=== PATIENT | male | born 1960 | race Caucasian/White ===

== ENCOUNTER 2018-01-07 06:44 | Inpatient (IN) ==
[2018-01-07] MEDS ORDERED: Lidocaine -MPF 1% 2 ML VIAL ID ONE (06:57)
[2018-01-07] MEDS ORDERED: CeFAZolin Syr 2,000MG/20 ML 2,000 MG/20 ML SYRINGE IVPB ONE (06:57)
--- NOTE | 2018-01-07 06:57 | Discharge Summary ---
<Yuli Sinclair E - Last Filed: 01/07/18 09:27> Orders not resulted at time of discharge: Pending orders 01/07/18 01:00 XR knee LT limited 1-2V [XR] Routine XR knee RT limited 1-2V [XR] Routine Hemoglobin and Hematocrit [HEME] Routine Date of Encounter: 01/07/18 - Discharge Diagnosis (1) Arthritis of both knees Priority: Primary Status: Chronic (2) Status post total bilateral knee replacement Priority: Primary Status: Acute (3) GERD (gastroesophageal reflux disease) Priority: Secondary Status: Chronic Qualifiers: Esophagitis presence: esophagitis presence not specified Qualified Code(s) : K21.9 - Gastro-esophageal reflux disease without esophagitis (4) Gout Priority: Secondary Status: Chronic Qualifiers: Gout site: unspecified site Gout etiology: unspecified cause Chronicity: unspecified Qualified Code(s): M10.9 - Gout, unspecified (5) Obesity Priority: Secondary Status: Chronic Qualifiers: Obesity type: unspecified obesity type Obesity classification: unspecified obesity classification Serious obesity comorbidity presence: unspecified whether serious comorbidity present Qualified Code(s): E66.9 - Obesity, unspecified - Hospital Course Hospital course: Mr. Grimes is a 57 year old male - Time Spent with Patient Total time spent providing and/or coordinating discharge services: - Discharge Medications Prescriptions: Cyclobenzaprine HCl 5 mg PO TID #21 tablet Lidocaine Patch [Lidoderm 5% patch] 1 each TP DAILY #60 adh..patch Home Medications: Aspirin Enteric Coated [Aspirin EC] 325 mg PO BID 10 Days #20 tablet. [Rx] Celecoxib [Celebrex] 200 mg PO BID 01/07/18 [History] Lansoprazole [Prevacid] 30 mg PO BID 01/07/18 [History] Losartan/Hydrochlorothiazide [Losartan-Hctz 50-12.5 mg Tab] 1 tab PO DAILY 01/07 [History] OxyCODONE Immed Rel [Roxicodone 5 MG] 5 mg PO Q6HR PRN 7 Days #28 tablet [Rx] Tamsulosin [Flomax] 0.4 mg PO DAILY 01/07/18 [History] Cyclobenzaprine HCl 5 mg PO TID #21 tablet 01/09/18 [Rx] Lidocaine Patch [Lidoderm 5% patch] 1 each TP DAILY #60 adh..patch 01/09/18 [Rx] Allergies/Adverse Reactions: 3 Allergy/AdvReac Type Severity Reaction Status Date / Time No Known Allergies Allergy Verified 01/07/18 08:05 Primary care physician: Davi Betts MD - Patient Status Disposition: Home Health Service Condition: Good - Discharge Instructions Follow Up With: Davi Betts MD [Primary Care Provider] - <Milagros Iraheta - Last Filed: 01/09/18 13:29> Orders not resulted at time of discharge: Pending orders 01/07/18 08:22 US anesthesia pain block [US] Routine 01/07/18 10:20 Surgical Pathology [PTH] Routine Date of Encounter: 01/09/18 - Discharge Diagnosis (1) Arthritis of both knees Status: Chronic (2) Status post total bilateral knee replacement Status: Acute (3) GERD (gastroesophageal reflux disease) Status: Chronic Qualifiers: Esophagitis presence: esophagitis presence not specified Qualified Code(s) : K21.9 - Gastro-esophageal reflux disease without esophagitis (4) Gout Status: Chronic Qualifiers: Gout site: unspecified site Gout etiology: unspecified cause Chronicity: unspecified Qualified Code(s): M10.9 - Gout, unspecified (5) Obesity (BMI 35.0-39.9 without comorbidity) Status: Chronic (6) Tachycardia Priority: Secondary Status: Resolved (7) Acute blood loss as cause of postoperative anemia Priority: Secondary Status: Acute Comments: 01/09 - 9.3/26.5 - Asymptomatic. Type and Crossed for 2 units - Hospital Course Hospital course: Mr. Grimes is a 57 year old male - Time Spent with Patient Total time spent providing and/or coordinating discharge services: Date of admission: 01/07/18 12:13 Primary care physician: Davi Betts MD Consults: 01/07/18 12:48 Consult to Occupational Therapy [CONS] Routine Comment: Evaluate, develop and implement POC Reason for Consult: post knee surgery Does patient have active BEDREST order?: No Is patient medically & hemodynamically stable?: Yes Consult to Orthopedic Navigator [CONS] [CONS] Routine Consult to Physical Therapy [CONS] Routine Comment: Evaluate, develop and impliment POC Reason for Consult: post knee surgery Does patient have active BEDREST order?: No Is patient medically & hemodynamically stable?: Yes Consult to Nutrition Representative [CONS] Routine Reason for SW Consult: post op joint replacement RT Post Op Consult [CONS] Routine Labs on day of discharge: Labs from last 24 hours 01/09/18 01/09/18 01/09/18 10:48 03:12 03:12 Hgb 9.3 L D Hct 26.5 L Sodium 131 L Potassium 4.3 Chloride 98 Carbon Dioxide 27 BUN 16 Creatinine 0.92 Est GFR ( Amer) > 60 Est GFR (Non-Af Amer) > 60 BUN/Creatinine Ratio 17 Glucose 126 H Calculated Osmolality 275 L Calcium 8.6 Blood Type O POSITIVE Antibody Screen NEGATIVE - Impressions ITS Impressions Knee X-Ray 01/07/18 01:00 IMPRESSION: 1. Left knee arthroplasty with no immediate complications. D/ / Gm Obrien MD / Gm Obrien MD Interpreting Provider: Gm Obrien MD Knee X-Ray 01/07/18 01:00 IMPRESSION: Anatomic alignment status post right knee arthroplasty. No evidence of hardware complication. D/ / Zac Barbosa MD / Zac Barbosa MD Interpreting Provider: Zac Barbosa MD <Blayne Stinson - Last Filed: 01/10/18 07:54> Orders not resulted at time of discharge: Pending orders 01/07/18 01:00 XR knee LT limited 1-2V [XR] Routine XR knee RT limited 1-2V [XR] Routine Hemoglobin and Hematocrit [HEME] Routine Date of Encounter: 01/10/18 Time of Encounter: 07:52 - Discharge Diagnosis (1) Obesity (BMI 35.0-39.9 without comorbidity) Priority: Secondary Status: Chronic (2) Arthritis of both knees Priority: Primary Status: Chronic (3) Status post total bilateral knee replacement Priority: Primary Status: Acute (4) GERD (gastroesophageal reflux disease) Priority: Secondary Status: Chronic Qualifiers: Esophagitis presence: esophagitis presence not specified Qualified Code(s) : K21.9 - Gastro-esophageal reflux disease without esophagitis (5) Gout Priority: Secondary Status: Chronic Qualifiers: Gout site: unspecified site Gout etiology: unspecified cause Chronicity: unspecified Qualified Code(s): M10.9 - Gout, unspecified (6) Tachycardia Priority: Primary Status: Acute (7) Acute blood loss as cause of postoperative anemia Priority: Primary Status: Acute - Hospital Course Hospital course: Mr. Grimes is a 57 year old male Status post bilateral total knee replacement Patient with some postoperative tachycardia related to anemia otherwise no complaints. The patient had an uneventful postoperative course. They received antibiotics and physical therapy and were discharged in stable condition. There will follow -up in the office in 2 weeks. - Time Spent with Patient Total time spent providing and/or coordinating discharge services: Primary care physician: Davi Betts MD - Patient Status Functional capacity at discharge: uses cane/walker Overall status at discharge: patient is back to baseline
[2018-01-07] MEDS ORDERED: Ringers Solution, Lactated 1,000 ML IVC SCH ×2 (07:00→12:48)
--- NOTE | 2018-01-07 07:56 | Anesthesia Evaluation PreOp ---
Date of Encounter: 01/07/18 Time of Encounter: 07:53 - Past History Planned Operation: Bilateral Total Knee Arthroplasty Cardiac History: HTN Pulmonary History: Denies Any Significant HX UPFITTER History: Denies Any Significant HX Other Medical History: GERD Anesthesia History: No Prior Anesthetic Complications, Past Anesthesia Alcohol Use: none Drug use: none Medications and Allergies Aspirin Enteric Coated [Aspirin EC] 325 mg PO BID 10 Days #20 tablet. [Rx] Aspirin [Lo-Dose Aspirin EC] 81 mg PO DAILY 01/07/18 [History] Celecoxib [Celebrex] 200 mg PO BID 01/07/18 [History] Lansoprazole [Prevacid] 30 mg PO BID 01/07/18 [History] Losartan/Hydrochlorothiazide [Losartan-Hctz 50-12.5 mg Tab] 1 tab PO DAILY 01/07 [History] Tamsulosin [Flomax] 0.4 mg PO DAILY 01/07/18 [History] 3 Allergy/AdvReac Type Severity Reaction Status Date / Time No Known Allergies Allergy Verified 01/07/18 08:05 - Meds/Allergy Pre-op Review Medications Reviewed: Yes Allergies Reviewed: Yes Beta Blockers on Current Med List: No Anesthesia Results - Labs Laboratory Tests 12/28/17 12/28/17 12/28/17 13:45 13:45 13:45 WBC 8.6 Hgb 16.3 Hct 44.7 Plt Count 227 PT 11.1 INR 1.0 APTT 32.5 Sodium 137 Potassium 4.0 BUN 18 Creatinine 0.97 - Imaging Additional studies: 12/07/2017 Echo Impressions: LVEF 60-65%. Normal LV chamber size and function. Mild concentric left ventricular hypertrophy. Mild left ventricular diastolic dysfunction. Normal right ventricular structure and function. Aortic valve not well visualized. Focal areas of calcification noted. Possible bicuspid aortic valve. Mild aortic sclerosis. Mean gradient 11 mmHg. No evidence of pulmonary hypertension. Consider a KARYN to further evaluate the number of aortic valve leaflets. 12/07/2017 Stress Findings: Sinus tachycardia at rest. No baseline arrhythmias were noted. Stress ECG is negative for ischemia. No arrhythmias noted during exercise or recovery. Hypertensive at rest, which worsened with exercise. The exercise capacity was average. No chest pain during stress procedure. Anesthesia Exam O2 Sat Height 1.8 m Height 1.8 m Height 1.8 m Weight 118.841 kg Weight 118.841 kg Weight 118.841 kg O2 Sat by Pulse Oximetry 96 Vital Signs Temp Pulse Resp BP Pulse Ox 98.4 F 93 18 144/91 96 01/07/18 07:00 01/07/18 07:00 01/07/18 07:00 01/07/18 07:00 01/07/18 07:00 Height: 5'11'' Weight: 262 lbs NPO (# of Hours): 8 Pain Scale: 0 Pain Scale Used: Numeric (1 - 10) - HEENT Pupil (Motor): EOMI Mallampati: II Teeth: Normal Oral Opening: Greater than 3 - UPFITTER LOC: Oriented UPFITTER Motor: Normal RUE, Normal LUE, Normal RLE, Normal LLE, Normal Face UPFITTER Sensory: Normal: RUE, LUE, RLE, LLE, Face - Cardiac Rhythm: Regular Murmur: None - Pulmonary Breath Sounds: bilateral Clear Respiratory Effort: Symmetrical Anesthesia Assess/Plan ASA Score: 2 Modified Colby Scale for Level of Consciousness: Cooperative, oriented, and tranquil Anesthetic Plan: General, Regional Monitoring Plan: Standard Monitors Recovery Plan: PACU
--- NOTE | 2018-01-07 08:00 | History & Physical Report ---
Date of Encounter: 01/07/18 Time of Encounter: 07:59 24 Hour HP Update - Instructions Instructions: If the History and Physical is less than 30 days old and was completed prior to A.M. admission and or procedure and has NOT been updated on calendar day of procedure please complete this update prior to performing procedure. - Update Patient reports changes in Medical Condition: No Changes in examination, assessment, or condition: No Changes in Medication: No Preop tests/diagnostics Reviewed: Yes Surgery Remains Indicated: Yes Consent for Planned Operative Procedure(s) Verified: Yes - Pre-Operative Checklist Preoperative Checklist Indicated: No Prophylactic Antibiotic Ordered: Yes Is VTE Prophylaxis Indicated?: Yes
[2018-01-07] MEDS ORDERED: Morphine Sulfate/PF 5mg/10mL Vial ONE (08:30)
[2018-01-07] MEDS ORDERED: ROPIVACAINE HCL/PF 0.5% 30 ML VIAL ONE (08:30)
[2018-01-07] MEDS ORDERED: Bupivacaine/Clonidine Syringe 1 EACH SYRINGE ONE ×2 (08:38)
[2018-01-07] MEDS ORDERED: Ethanol\\Acetic Acid\\Na Ace\\Ben 1,000 ML IRRIG.SOLN IR ONE (08:39)
[2018-01-07] MEDS ORDERED: *HR* FentaNYL (PF) 100 MCG/2 ML VIAL ONE ×4 (08:39→10:45)
[2018-01-07] MEDS ORDERED: *HR* Midazolam HCl 2 MG/2 ML VIAL ONE (08:49)
[2018-01-07] MEDS ORDERED: Lidocaine -MPF 2% 2 ML VIAL ONE (08:50)
[2018-01-07] MEDS ORDERED: Ondansetron 4 MG/2 ML VIAL ONE (08:50)
[2018-01-07] MEDS ORDERED: Dexamethasone 4 MG/ML VIAL ONE (08:50)
[2018-01-07] MEDS ORDERED: *HR* Propofol 200 MG/20 ML VIAL IVP ONE (08:50)
--- NOTE | 2018-01-07 09:06 | Anesthesia Procedures ---
Date of Encounter: 01/07/18 Time of Encounter: 09:04 Procedures: Anesthesia - Nerve Block Procedure Date: 01/07/18 Time: 09:04 Allergies/Adv Reactions: No Known Allergies Allergy (Verified 01/07/18 08:05) Pre-op Diagnosis: oa bilateral knees Surgical Procedure: bilateral tka Checklist: Correct Patient Identifier, Correct procedure, History checked Correct side: Right Blood Thinner: No Monitor Applied: BP, Pulse Oximetry Supplemental Oxygen via Nasal Cannula (L/min): 2 Sedation: Versed (mg): 2 Sedation: Fentanyl (mcg): 100 Indication: Post Op Analgesia Pre-op Neuro Deficits: No Block Type: Femoral (20cc 0.5% ropi each side), Other (ipack 20cc 0.25% bup each side) Catheter placed: No Sterile Technique: Yes Ultrasound used: Yes Anatomy identified: Yes Visual spread of Local: Yes Neuro Stimulation: No Nerve Stimulator Range: 0.2 - 0.4 mA Blood on Needle Aspiration: No Smooth Injection of Local: Yes Pain with Injection of Local: No Prep: Chlorhexadine Needle: 22 x 50 mm Stimuplex Local: 0.25% Bupivicaine w/Clonidine 20 mcg/cc, Ropivacaine (0,5%) Volume (cc): 80 Number of Attempts: 1 Complications: None/effective block
[2018-01-07] MEDS ORDERED: *HR* PHENYLEPHRINE 1,000 MCG/10 ML SYRINGE IVP ONE (09:18)
[2018-01-07] MEDS ORDERED: EPHEDrine 50 MG/ML VIAL ONE (09:46)
[2018-01-07] MEDS ORDERED: *HR* Vasopressin 20 UNIT/ML VIAL ONE (10:38)
[2018-01-07] MEDS ORDERED: Ketorolac 30 MG/ML VIAL ONE (10:45)
--- NOTE | 2018-01-07 11:06 | Orthopedic Operative Note ---
Date of procedure: 01/07/18 Pre-op diagnosis: Bilateral knee arthritis Post-op diagnosis: same Procedure: Procedure: Bilateral robotic-assisted Total knee replacement Estimated blood loss: 500 cc Hardware: Metal and polyethylene replacement. Glenn Femur: 6 Tibia:7 TS insert: 13 Patella: 39 Exam Under anesthesia: Left knee 5 degree flexion contracture 14 degree varus, right knee 9 degrees flexion contracture 18 degree varus as calculated by the robot full flexion and significant instability of both knees Procedural Notes: Grade 4 arthritic changes all 3 compartments of both knees Operative procedure: The patient was brought to the operating room and placed on the operating room table. After general anesthesia was administered the operative knee was examined. Findings were noted in the exam under anesthesia. The operative extremity was prepped and draped in sterile surgical fashion. The patient received IV antibiotics prior to skin incision. A dictation that will follow-up he for both knees any differences will be highlighted. A standard midline incision was made centered over the patella. The incision was made through the skin and subcutaneous tissue. A medial parapatellar tendon approach was performed. Care was taken to preserve tissue along the medial aspect of the patella. And to protect the patella tendon. The deep MCL was released off the medial tibia. The infra patella fat pad was excised. The patella was everted and cut was made at the level of the insertion of the quadriceps and patella tendon. The patella was sized to a 39 the guide was seated and the lug holes are drilled. Knee was brought into flexion. Patient noted to have Steinmann pins were placed in the tibia and the femur for the tibial and femoral arrays respectively. Checkpoints were also placed in the tibia and the femur for calculation purposes. The knee including the femur and the tibial registered. Osteophytes, ACL and PCL were excised at this point. Extension and flexion were assessed with a valgus stress components were adjusted on the computer to balance the knee. Patient had significant variation with regards to either knee 5 degree flexion contracture of the left knee with 14 degree varus, 9 degree flexion contracture of the right knee with 18 degree varus. Femoral cuts were made first with robotic assistance, these included the anterior cut posterior cuts chamfer cuts. Tibial cut was then performed with robotic assistance as well. Bone fragments were removed, as well as the medial and lateral meniscus. The size 6 femoral guide was seated box cut was made lug holes are drilled. The size 7 tibial tray was seated and prepared with the fin cutter. Trial reduction with the 13 TS Nanette revealed extension of X degree and 7 degree varus left knee 10 degree varus right knee full flexion. No varus valgus instability. Trial reduction revealed excellent patella tracking. All trial components were removed all bony surfaces were irrigated. The Tibia was seated followed by the femur, The Nanette size 13 was seated and secured patella. Patient had similar findings for motion and stability. The knee was closed by the PA. The knee was then irrigated out with 2 L of pulse irrigation. The extensor mechanism was closed with #2 FiberWire suture and #2 PDS suture. The subcutaneous tissue was then irrigated and closed deep with #1 PDS suture superficially with 0 PDS suture and skin was closed with zip tie The patient was then placed in a sterile dressing and a postoperative brace extubated and transferred to recovery room in stable condition. Anesthesia: GETGillian Surgeon: Blayne Stinson Was there an assistant department manager present: Yes Plumbing Assembler Installer: Milagros Iraheta Estimated blood loss (cc): 500 Condition: stable Disposition: PACU
--- NOTE | 2018-01-07 12:06 | Anesthesia Evaluation Post Op ---
Date of Encounter: 01/07/18 Time of Encounter: 12:05 - Vital Signs Vital Signs: Last Vital Signs Temp 97.5 F L 01/07/18 12:03 Pulse 94 01/07/18 12:03 Resp 14 01/07/18 12:03 BP 112/81 01/07/18 11:59 Pulse Ox 94 01/07/18 12:03 - Lungs Lungs: Clear Ascult./Percussion - Airway Airway: Non-obstructed - Cardiovascular Regular Rate - Mental Status Mental Status: Alert & Oriented, Answers Appropriately - Pain Pain Scale: 3 - Nausea Vomiting Nausea Vomiting: Not Present - Hydration Hydration: Ice chips - Discharge PostOp Status: Transfer Patient to floor
[2018-01-07 12:27] LABS: Hematocrit 43.9 % (37.5-50.1); Hemoglobin 15.2 g/dL (12.9-16.9)
[2018-01-07] MEDS ORDERED: Ondansetron 4 MG/2 ML VIAL IVP ONE (12:48)
[2018-01-07] MEDS ORDERED: *HR* Promethazine 25 MG/ML VIAL IVP PRN (12:48)
[2018-01-07] MEDS ORDERED: Naloxone 0.4 MG/ML INJ IVP PRN (12:48)
[2018-01-07] MEDS ORDERED: traMADol 50 MG TABLET PO PRN (12:48)
[2018-01-07] MEDS ORDERED: *HR* OxyCODONE/APAP 5/325 TABLET PO PRN ×2 (12:48)
[2018-01-07] MEDS ORDERED: MOM Conc 10 ML UD.LIQ PO PRN (12:48)
[2018-01-07] MEDS ORDERED: Sennosides 8.6 MG TABLET PO PRN (12:48)
[2018-01-07] MEDS ORDERED: Temazepam 15 MG CAPSULE PO PRN (12:48)
[2018-01-07] MEDS: *HR* OxyCODONE Immed Rel 5 MG TABLET PO PRN ×2 (13:14→22:00)
[2018-01-07] MEDS: Ondansetron 4 MG/2 ML VIAL IVP PRN ×2 (14:08→21:59)
[2018-01-07] MEDS: Losartan/HCTZ 50-12.5 TABLET PO SCH (14:17)
[2018-01-07] MEDS: Aspirin Enteric Coated 81 MG Tablet PO SCH (14:17)
[2018-01-07] MEDS: Celecoxib 200 MG CAPSULE PO SCH ×2 (14:17→22:00)
[2018-01-07] MEDS ORDERED: Acetaminophen IV 1,000 MG/100 ML INFUS..BTL IVPB PRN (14:33)
[2018-01-07] MEDS ORDERED: Ketorolac 30 MG/ML VIAL IVP PRN (14:34)
[2018-01-07] MEDS: CeFAZolin Syr 3,000MG/30 ML 3,000 MG/30 ML SYRINGE IVPB SCH (16:10)
[2018-01-07] MEDS: *HR* Enoxaparin 30 MG/0.3 ML SYRINGE SQ SCH (16:10)
[2018-01-07] MEDS: *HR* Promethazine 25 MG/ML VIAL IVP PRN (16:34)
[2018-01-07] MEDS ORDERED: *HR* Enoxaparin 30 MG/0.3 ML SYRINGE SQ SCH (18:00)
[2018-01-08] MEDS: CeFAZolin Syr 3,000MG/30 ML 3,000 MG/30 ML SYRINGE IVPB SCH (01:27)
[2018-01-08] MEDS: *HR* Enoxaparin 30 MG/0.3 ML SYRINGE SQ SCH ×2 (05:13→17:28)
[2018-01-08] MEDS: Ondansetron 4 MG/2 ML VIAL IVP PRN (05:13)
[2018-01-08] MEDS: *HR* OxyCODONE Immed Rel 5 MG TABLET PO PRN ×5 (05:13→22:08)
[2018-01-08 05:32] LABS: Hematocrit 36.8 % (37.5-50.1)
[2018-01-08 05:39] LABS: Hemoglobin 12.8 g/dL (12.9-16.9)
[2018-01-08 05:49] LABS: BUN/Creatinine Ratio 17 (6-26); Blood Urea Nitrogen 22 mg/dL (6-20); Calcium 9.1 mg/dL (8.6-10.3); Carbon Dioxide 22 mEq/L (23-29); Chloride 99 mEq/L (98-107); Glucose 137 mg/dL (70-105); Osmolality,Calculated 281 (280-300); Potassium 4.3 mEq/L (3.5-5.1); Sodium 133 mEq/L (136-145); eGFR For African Americans > 60 (> 60); eGFR For Non-African Americans 58 (> 60)
--- NOTE | 2018-01-08 06:24 | Orthopedics Progress Note ---
Date of Encounter: 01/08/18 Time of Encounter: 06:24 - Assessment and Plan (1) Obesity (BMI 35.0-39.9 without comorbidity) Current Visit: Yes Status: Chronic (2) Arthritis of both knees Current Visit: Yes Status: Chronic (3) Status post total bilateral knee replacement Current Visit: Yes Status: Acute (4) GERD (gastroesophageal reflux disease) Current Visit: Yes Status: Chronic Qualifiers: Esophagitis presence: esophagitis presence not specified Qualified Code(s) : K21.9 - Gastro-esophageal reflux disease without esophagitis (5) Gout Current Visit: Yes Status: Chronic Qualifiers: Gout site: unspecified site Gout etiology: unspecified cause Chronicity: unspecified Qualified Code(s): M10.9 - Gout, unspecified Subjective Interval history: Patient was seen this morning doing well without complaints. Afebrile vital signs stable. Operative extremity: Neurovascularly intact Dressing clean dry and intact Calves nontender Assessment and plan: Continue with postoperative care Hematocrit 36 Objective Vital signs: Vital Signs Temp Pulse Resp BP Pulse Ox 01/08/18 04:17 98.0 F 96 18 150/106 98 01/08/18 00:27 98.1 F 100 16 151/92 97 01/07/18 22:14 1 01/07/18 19:20 98.6 F 110 18 144/88 100 01/07/18 16:41 97.3 F L 01/07/18 14:19 96 16 125/88 96 01/07/18 13:15 102.0 F H 102 16 127/85 98 01/07/18 12:45 97.1 F L 106 15 122/88 96 01/07/18 12:30 97.2 F L 105 15 123/86 96 01/07/18 12:09 97.5 F L 94 14 122/87 94 01/07/18 11:59 98 24 112/81 94 01/07/18 11:49 94 20 101/76 95 01/07/18 11:39 97.0 F L 85 18 94/66 96 01/07/18 08:41 82 148/90 97 01/07/18 07:00 98.4 F 93 18 144/91 96 Intake and Output 01/07/18 01/07/18 01/08/18 15:59 23:59 07:59 Intake Total 230 / 230 740 / 740 Output Total 500 / 500 550 / 550 950 / 950 Balance -500 / -500 -320 / -320 -210 / -210 Intake: IV Fluids 30 / 30 Ancef Syringe 3,000 MG/30 ML 3, 30 / 30 000 mg In 30 ml @ 200 mls/hr IVPB Q8HR [facility] Rx#:[id number] Oral 200 / 200 740 / 740 Output: Urine 550 / 550 950 / 950 Estimated Blood Loss 500 / 500 - Labs CBC & BMP: 01/08/18 04:54 01/08/18 04:54 Labs: Abnormal lab results Hgb 12.8 g/dL (12.9-16.9) L D 01/08/18 04:54 Hct 36.8 % (37.5-50.1) L 01/08/18 04:54 Sodium 133 mEq/L (136-145) L 01/08/18 04:54 Carbon Dioxide 22 mEq/L (23-29) L 01/08/18 04:54 BUN 22 mg/dL (6-20) H 01/08/18 04:54 Est GFR (Non-Af Amer) 58 (> 60) L 01/08/18 04:54 Glucose 137 mg/dL (70-105) H 01/08/18 04:54 - VTE Documentation of Mechanical Device: Venous foot pump, device Consult Discharge Plan - Plan Referrals: Davi Betts MD [Primary Care Provider] -
[2018-01-08] MEDS: *HR* Promethazine 25 MG/ML VIAL IVP PRN (08:19)
[2018-01-08] MEDS: Celecoxib 200 MG CAPSULE PO SCH (09:25)
[2018-01-08] MEDS: Aspirin Enteric Coated 81 MG Tablet PO SCH (09:25)
[2018-01-08] MEDS: Losartan/HCTZ 50-12.5 TABLET PO SCH (09:26)
[2018-01-08] MEDS: Ketorolac 15 MG/ML VIAL IVP SCH ×2 (15:32→15:33)
--- NOTE | 2018-01-08 15:45 | Event Note ---
Date of Encounter: 01/08/18 Time of Encounter: 15:43 PCR - POD#1 Bilateral TKR 01/07/18 Patient seen at bedside. Intermittent NV - Phenergan and Zofran helping. Intermittent Tachycardia (120 high during PT) - 100 at rest. Encourage hydration and IS Labs reviewed. Monitor kidney function Pain control: adequate - Added Toradol Participating in PT. All questions and concerns addressed. Educated on use of incentive spirometer. Encouraged ambulation and proper hydration. Patient educated on post-operative restrictions and post-operative care. Addressed: see above Discharge plan: Plan to DC home tomorrow; but patient may also require ECF or HH due to family's inability to care for him at home.
--- NOTE | 2018-01-08 16:16 | Physician Discharge Referral ---
ExtendedCare Referral Info Transfer To: [facility] Provider in Charge: Provider in Charge after Transfer: PCP Institutional Level of Care: Skilled - Diagnosis (1) Arthritis of both knees Priority: Primary Status: Chronic (2) Status post total bilateral knee replacement Priority: Primary Status: Acute (3) GERD (gastroesophageal reflux disease) Status: Chronic (4) Gout Status: Chronic (5) Obesity (BMI 35.0-39.9 without comorbidity) Status: Chronic Expected Duration of Placement: < 30 days - Transfer Medications Home Medications: Aspirin Enteric Coated [Aspirin EC] 325 mg PO BID 10 Days #20 tablet. [Rx] Aspirin [Lo-Dose Aspirin EC] 81 mg PO DAILY 01/07/18 [History] Celecoxib [Celebrex] 200 mg PO BID 01/07/18 [History] Lansoprazole [Prevacid] 30 mg PO BID 01/07/18 [History] Losartan/Hydrochlorothiazide [Losartan-Hctz 50-12.5 mg Tab] 1 tab PO DAILY 01/07 [History] OxyCODONE Immed Rel [Roxicodone 5 MG] 5 mg PO Q6HR PRN 7 Days #28 tablet [Rx] Tamsulosin [Flomax] 0.4 mg PO DAILY 01/07/18 [History] Allergies/Adverse Reactions: 3 Allergy/AdvReac Type Severity Reaction Status Date / Time No Known Allergies Allergy Verified 01/07/18 08:05 - Respiratory Orders None Smoking Cessation: Smoking cessation has been advised. For more information, call the [place] Tobacco Quit Line at 3-487-CSMW-NOW. - Mobility Orders Chair, Ambulate - Rehabiliation Orders Rehab Potential: Good Rehab Orders: ROM Exercises, Evaluation for Physical Therapy, Evaluation for Occupational Therapy - Treatments List/Other: Opsite dressings leave intact until first post-operative visit. If dressing becomes >50% saturated, contact office, remove dressing and place appropriate dressing in its place. Do not allow for dressing to get wet. Zipline in place, plan to remove at post-operative day #14-16. Total Joint Precautions x 6 weeks Apply cold therapy wrap 3-6x/day for 20 minutes at a time. Encourage ambulation throughout the day Use Incentive spirometer 10x/hour. Elevate affected extremity above heart as tolerated. Brace: Wear knee immobilizer at night x 2 weeks.~ CERTIFICATION: I certify that the transfer of the above named patient to an Extended Care Facility is necessary for the continuing treatment of the diagnosis listed. The above information is true and accurate reflection of patient's current condition. Confidential - Redisclosure prohibited without a patient's written consent.
--- NOTE | 2018-01-08 16:19 | Physician Discharge Referral ---
Home Health/Hosp Referral Info Transfer to: Home Health Provider in Charge Post Discharge: PCP - Diagnosis (1) Arthritis of both knees Priority: Primary Status: Chronic (2) Status post total bilateral knee replacement Priority: Primary Status: Acute (3) GERD (gastroesophageal reflux disease) Status: Chronic (4) Gout Status: Chronic (5) Obesity (BMI 35.0-39.9 without comorbidity) Status: Chronic - Respiratory Orders None Smoking Cessation: Smoking cessation has been advised. For more information, call the [place] Tobacco Quit Line at 1-591-WDDT-NOW. - Diet/Nutrition Diet/Nutrition Orders: Regular - Activity Activity Orders: Ambulate, Chair, Walker - Services Needed Following services are medically necessary services: Nursing, Home Health Aide, Physical Therapy, Occupational Therapy Home Care Orders: Opsite dressing, leave intact until first post-operative visit. If dressing becomes >50% saturated, contact office, remove dressing and place appropriate dressing in its place. Do not allow for dressing to get wet. Zipline/ in place, plan to remove at post-operative day #14-16. Total Joint Precautions x 6 weeks Apply cold therapy wrap 3-6x/day for 20 minutes at a time. Encourage ambulation throughout the day Use Incentive spirometer 10x/hour. Elevate affected extremity above heart as tolerated. Brace: Wear knee immobilizer at night x 2 weeks.~ - Transfer Medications Home Medications: Aspirin Enteric Coated [Aspirin EC] 325 mg PO BID 10 Days #20 tablet. [Rx] Aspirin [Lo-Dose Aspirin EC] 81 mg PO DAILY 01/07/18 [History] Celecoxib [Celebrex] 200 mg PO BID 01/07/18 [History] Lansoprazole [Prevacid] 30 mg PO BID 01/07/18 [History] Losartan/Hydrochlorothiazide [Losartan-Hctz 50-12.5 mg Tab] 1 tab PO DAILY 01/07 [History] OxyCODONE Immed Rel [Roxicodone 5 MG] 5 mg PO Q6HR PRN 7 Days #28 tablet [Rx] Tamsulosin [Flomax] 0.4 mg PO DAILY 01/07/18 [History] Allergies/Adverse Reactions: 3 Allergy/AdvReac Type Severity Reaction Status Date / Time No Known Allergies Allergy Verified 01/07/18 08:05 Certification: Further, I certify that my clinical findings support that this patient is homebound (i.e. absences from home require considerable and taxing effort and are for medical reasons or zoroastrian services or infrequently or short duration when for other reasons) because: Homebound Reason: Post-surgery restriction and or conditions limit ability to leave home Attestation: My signature below is to certify that this patient is under my care and that I, or nurse practitioner, or a physician's medical assistant dermatology working with me, has a face-to -face encounter with this patient.
[2018-01-08] MEDS: Gabapentin 300 MG CAPSULE PO SCH ×2 (17:28→17:29)
[2018-01-09] MEDS: Ketorolac 15 MG/ML VIAL IVP SCH ×4 (00:02→18:10)
[2018-01-09] MEDS: *HR* Promethazine 25 MG/ML VIAL IVP PRN (00:02)
[2018-01-09 03:43] LABS: Hematocrit 26.5 % (37.5-50.1)
[2018-01-09 03:44] LABS: Hemoglobin 9.3 g/dL (12.9-16.9)
[2018-01-09 03:53] LABS: BUN/Creatinine Ratio 17 (6-26); Blood Urea Nitrogen 16 mg/dL (6-20); Calcium 8.6 mg/dL (8.6-10.3); Carbon Dioxide 27 mEq/L (23-29); Chloride 98 mEq/L (98-107); Glucose 126 mg/dL (70-105); Osmolality,Calculated 275 (280-300); Potassium 4.3 mEq/L (3.5-5.1); Sodium 131 mEq/L (136-145); eGFR For African Americans > 60 (> 60); eGFR For Non-African Americans > 60 (> 60)
[2018-01-09] MEDS: *HR* Enoxaparin 30 MG/0.3 ML SYRINGE SQ SCH ×2 (06:23→17:54)
[2018-01-09] MEDS: Aspirin Enteric Coated 81 MG Tablet PO SCH (09:18)
[2018-01-09] MEDS: Gabapentin 300 MG CAPSULE PO SCH ×2 (09:18→20:17)
[2018-01-09] MEDS: Losartan/HCTZ 50-12.5 TABLET PO SCH (09:19)
[2018-01-09] MEDS: Ondansetron 4 MG/2 ML VIAL IVP PRN (09:21)
[2018-01-09] MEDS: *HR* OxyCODONE Immed Rel 5 MG TABLET PO PRN ×3 (12:07→21:53)
--- NOTE | 2018-01-09 12:35 | Orthopedics Progress Note ---
Date of Encounter: 01/09/18 Time of Encounter: 09:40 - Assessment and Plan (1) Arthritis of both knees Current Visit: Yes Status: Chronic (2) Status post total bilateral knee replacement Current Visit: Yes Status: Acute Patient seen at bedside. Patient was seen this morning doing well, improvement of N/V. Improvement in pain. Tachycardia at rest improved, will D/C Telemetry. Start pulse ox to monitor. Pain controlled - Added Lidoderm patch, Toradol, and Flexeril. Afebrile, vital signs stable. Labs reviewed. H/H - decreased since 01/08, asymptomatic - 9.3/26.5 - Will type and cross for 2 units and repeat H/H in AM, plan to transfuse if it decreases Sodium 131 - asymptomatic . All questions and concerns addressed. Educated on use of incentive spirometer. Encouraged ambulation and proper hydration. Assessment and plan: Continue with postoperative care Discharge plan: ECF, DC on to [facility] - patient may go home with as well if family is able to care for him. Flexeril and Lidoderm patches added to ECF continuity. (3) GERD (gastroesophageal reflux disease) Current Visit: Yes Status: Chronic Qualifiers: Esophagitis presence: esophagitis presence not specified Qualified Code(s) : K21.9 - Gastro-esophageal reflux disease without esophagitis (4) Gout Current Visit: Yes Status: Chronic Qualifiers: Gout site: unspecified site Gout etiology: unspecified cause Chronicity: unspecified Qualified Code(s): M10.9 - Gout, unspecified (5) Obesity (BMI 35.0-39.9 without comorbidity) Current Visit: Yes Status: Chronic Subjective Principal diagnosis: Bilateral TKR 01/07/18 Interval history: Patient seen at bedside. Patient was seen this morning doing well, improvement of N/V. Improvement in pain. Tachycardia at rest improved, will D/C Telemetry. Start pulse ox to monitor. Pain controlled - Added Lidoderm patch, Toradol, and Flexeril. Afebrile, vital signs stable. Operative extremity: Neurovascularly intact Dressing clean dry and intact Calves nontender Labs reviewed. H/H - decreased since 01/08, asymptomatic - 9.3/26.5 - Will type and cross for 2 units and repeat H/H in AM, plan to transfuse if it decreases Sodium 131 - asymptomatic Pain control: adequate Participating in PT. All questions and concerns addressed. Educated on use of incentive spirometer. Encouraged ambulation and proper hydration. Patient educated on post-operative restrictions and post-operative care. Assessment and plan: Continue with postoperative care Discharge plan: [facility] on to - patient may go home with HH as well if family is able to care for him. . Objective Vital signs: Vital Signs Temp Pulse Resp BP Pulse Ox 01/09/18 11:08 98.5 F 114 16 149/94 100 01/09/18 07:25 98.9 F 112 15 153/87 97 01/09/18 03:37 98.7 F 111 16 159/92 98 01/08/18 23:43 98.1 F 103 16 135/77 99 01/08/18 19:06 99.2 F 108 18 155/92 98 01/08/18 15:34 98.7 F 101 16 131/81 98 Intake and Output 01/08/18 01/09/18 01/09/18 23:59 07:59 15:59 Intake Total 300 / 300 240 / 240 Output Total 300 / 300 720 / 720 Balance 0 / 0 -720 / -720 240 / 240 Intake: Oral 300 / 300 240 / 240 Output: Urine 300 / 300 720 / 720 Other: Meal Breakfast Percent of Meal Consumed 30% # Voids 1 Incision: clean and dry - Labs CBC & BMP: 01/09/18 03:12 01/09/18 03:12 Labs: Abnormal lab results Hgb 9.3 g/dL (12.9-16.9) L D 01/09/18 03:12 Hct 26.5 % (37.5-50.1) L 01/09/18 03:12 Sodium 131 mEq/L (136-145) L 01/09/18 03:12 Glucose 126 mg/dL (70-105) H 01/09/18 03:12 Calculated Osmolality 275 (280-300) L 01/09/18 03:12 - VTE Documentation of Mechanical Device: Venous foot pump, device Consult Discharge Plan - Plan Referrals: Davi Betts MD [Primary Care Provider] -
[2018-01-09] MEDS ORDERED: Celecoxib 100 MG CAPSULE PO ONE (21:00)
[2018-01-10] MEDS: *HR* OxyCODONE Immed Rel 5 MG TABLET PO PRN ×5 (02:11→23:21)
[2018-01-10] MEDS: *HR* Enoxaparin 30 MG/0.3 ML SYRINGE SQ SCH ×2 (06:08→17:45)
[2018-01-10] MEDS: Losartan/HCTZ 50-12.5 TABLET PO SCH (07:46)
[2018-01-10] MEDS: Aspirin Enteric Coated 81 MG Tablet PO SCH (07:46)
[2018-01-10] MEDS: Gabapentin 300 MG CAPSULE PO SCH ×2 (07:47→20:34)
[2018-01-10] MEDS: Celecoxib 200 MG CAPSULE PO SCH ×2 (07:47→20:34)
--- NOTE | 2018-01-10 07:56 | Orthopedics Progress Note ---
Date of Encounter: 01/10/18 Time of Encounter: 07:55 - Assessment and Plan (1) Obesity (BMI 35.0-39.9 without comorbidity) Current Visit: Yes Status: Chronic (2) Arthritis of both knees Current Visit: Yes Status: Chronic (3) Status post total bilateral knee replacement Current Visit: Yes Status: Acute (4) GERD (gastroesophageal reflux disease) Current Visit: Yes Status: Chronic Qualifiers: Esophagitis presence: esophagitis presence not specified Qualified Code(s) : K21.9 - Gastro-esophageal reflux disease without esophagitis (5) Gout Current Visit: Yes Status: Chronic Qualifiers: Gout site: unspecified site Gout etiology: unspecified cause Chronicity: unspecified Qualified Code(s): M10.9 - Gout, unspecified (6) Tachycardia Current Visit: Yes Status: Acute (7) Acute blood loss as cause of postoperative anemia Current Visit: Yes Status: Acute Subjective Principal diagnosis: Bilateral TKR 01/07/18 Interval history: Patient was seen this morning doing well without complaints. Afebrile vital signs stable. Operative extremity: Neurovascularly intact Dressing clean dry and intact Calves nontender Assessment and plan: Continue with postoperative care Hemoglobin 9.3 discharged today if cleared by PT Objective Vital signs: Vital Signs Temp Pulse Resp BP Pulse Ox 01/10/18 07:05 98.2 F 106 18 146/81 98 01/10/18 03:48 98 01/09/18 23:34 99.0 F 89 18 128/84 96 01/09/18 18:43 99.8 F H 93 16 100/69 97 01/09/18 16:06 97.5 F L 93 14 128/75 93 01/09/18 11:08 98.5 F 114 16 149/94 100 Intake and Output 01/09/18 01/09/18 01/10/18 15:59 23:59 07:59 Intake Total 240 / 240 400 / 400 50 / 50 Output Total 250 / 250 Balance 240 / 240 400 / 400 -200 / -200 Intake: Oral 240 / 240 400 / 400 50 / 50 Output: Urine 250 / 250 Other: Meal Breakfast Percent of Meal Consumed 30% # Voids 1 1 1 - Labs CBC & BMP: 01/09/18 03:12 01/09/18 03:12 Labs: Abnormal lab results Hgb 9.3 g/dL (12.9-16.9) L D 06/13/18 03:12 Hct 26.5 % (37.5-50.1) L 01/09/18 03:12 Sodium 131 mEq/L (136-145) L 01/09/18 03:12 Glucose 126 mg/dL (70-105) H 01/09/18 03:12 Calculated Osmolality 275 (280-300) L 01/09/18 03:12 - VTE Documentation of Mechanical Device: Venous foot pump, device Consult Discharge Plan - Plan Referrals: Davi Betts MD [Primary Care Provider] - Prescriptions: Cyclobenzaprine HCl 5 mg PO TID #21 tablet Lidocaine Patch [Lidoderm 5% patch] 1 each TP DAILY #60 adh..patch
[2018-01-10] MEDS: Ondansetron ODT 4 MG TAB.RAPDIS SL PRN (08:56)
[2018-01-10 12:12] LABS: Hematocrit 22.4 % (37.5-50.1); Hemoglobin 7.9 g/dL (12.9-16.9)
[2018-01-10] MEDS ORDERED: Furosemide 20 MG/2 ML VIAL IVP ONE ×2 (16:47→23:45)
[2018-01-10] MEDS ORDERED: 0.9 % Sodium Chloride 250 ML ONE ×2 (17:17→20:54)
[2018-01-11] MEDS: *HR* OxyCODONE Immed Rel 5 MG TABLET PO PRN ×2 (04:37→13:45)
[2018-01-11] MEDS: *HR* Enoxaparin 30 MG/0.3 ML SYRINGE SQ SCH (04:37)
--- NOTE | 2018-01-11 06:41 | Orthopedics Progress Note ---
Date of Encounter: 01/11/18 Time of Encounter: 06:41 - Assessment and Plan (1) Obesity (BMI 35.0-39.9 without comorbidity) Current Visit: Yes Status: Chronic (2) Arthritis of both knees Current Visit: Yes Status: Chronic (3) Status post total bilateral knee replacement Current Visit: Yes Status: Acute (4) GERD (gastroesophageal reflux disease) Current Visit: Yes Status: Chronic Qualifiers: Esophagitis presence: esophagitis presence not specified Qualified Code(s) : K21.9 - Gastro-esophageal reflux disease without esophagitis (5) Gout Current Visit: Yes Status: Chronic Qualifiers: Gout site: unspecified site Gout etiology: unspecified cause Chronicity: unspecified Qualified Code(s): M10.9 - Gout, unspecified (6) Tachycardia Current Visit: Yes Status: Acute (7) Acute blood loss as cause of postoperative anemia Current Visit: Yes Status: Acute Subjective Principal diagnosis: Bilateral TKR 01/07/18 Interval history: Patient was seen this morning doing well without complaints. Afebrile vital signs stable. Operative extremity: Neurovascularly intact Dressing clean dry and intact Calves nontender Assessment and plan: Continue with postoperative care Hemoglobin recheck reveals 7.9 transfuse 2 units yesterday we will recheck this morning plan for discharge. Objective Vital signs: Vital Signs Temp Pulse Resp BP Pulse Ox 01/11/18 04:08 98.1 F 91 18 103/66 99 01/10/18 23:51 99.1 F 93 16 105/60 01/10/18 23:00 99.1 F 93 16 105/60 99 01/10/18 21:01 98.8 F 98 16 144/76 01/10/18 21:00 98.8 F 98 16 144/76 01/10/18 17:47 98.7 F 113 20 105/69 98 01/10/18 17:33 98.6 F 112 20 102/59 100 01/10/18 16:34 98.9 F 94 18 106/71 99 01/10/18 11:23 98.3 F 105 18 112/69 98 01/10/18 07:05 98.2 F 106 18 146/81 98 Intake and Output 01/10/18 01/10/18 01/11/18 15:59 23:59 07:59 Intake Total 1760 / 1760 1510 / 1510 0 / 0 Output Total 0 / 0 Balance 1760 / 1760 1510 / 1510 0 / 0 Intake: Oral 1760 / 1760 810 / 810 0 / 0 Blood Product 700 / 700 Rbcs Leuko Poor As-1 Unit 350 / 350 [id number] Rbcs Leuko Poor As-3 Ph Unit 350 / 350 [id number] Output: Urine 0 / 0 Other: Meal Lunch Dinner Percent of Meal Consumed 50% 95% # Voids 1 2 1 - Labs CBC & BMP: 01/10/18 11:47 01/09/18 03:12 Labs: Abnormal lab results Hgb 7.9 g/dL (12.9-16.9) L 01/10/18 11:47 Hct 22.4 % (37.5-50.1) L 01/10/18 11:47 Sodium 131 mEq/L (136-145) L 01/09/18 03:12 Glucose 126 mg/dL (70-105) H 01/09/18 03:12 Calculated Osmolality 275 (280-300) L 01/09/18 03:12 - VTE Documentation of Mechanical Device: Venous foot pump, device Consult Discharge Plan - Plan Additional Instructions: Discharge Instructions: Total Knee Replacement Please call [facility] ([phone]), your Primary Care Physician, or report to the Emergency Room if you have any of the following symptoms: Nausea, vomiting, fever greater that 101.5, swelling, chest pain, shortness of breath, increased pain/redness/drainage/odor for your incision site, numbness/ tingling, or any other concerning symptoms. ACTIVITY:Weight-bearing as tolerated. You may progress off support (crutches or walker) as tolerated. MEDICATIONS: Upon discharge resume your home medications. Take all the medications as prescribed. Take a stool softener if taking narcotic pain medications. Stool softeners are only effective if you drink enough fluids. Drink 6-8 glass of water or fluids a day, unless this is not allowed for another health problem. Despite using stool softeners, if you haven't had a bowel movement in 3 days, please switch to a gentle laxative. Gentle laxatives are sold over the counter. You should have a bowel movement within 24 hours, if not call the office. You will be discharged from the hospital with a prescription for pain medication. You are encouraged to decrease the use of narcotic pain medication as tolerated. Should you require a refill, please call the office. [facility] prescribes narcotic pain medication for only 4-6 weeks after surgery. If you require pain medication beyond this time period, you may be referred to your Primary Care Physician or to the Pain Clinic for further evaluation. Plan ahead for refills on pain medication as many narcotics either need to be picked up at the office or mailed. It is best to call 48-72 hours in advance of needing a prescription refill so you don't run out of medication. To help control the post-operative pain, you may take NSAIDs (Aleve,Advil, Motrin, Ibuprofen, Naprosyn) or Tylenol as prescribed on the bottle in addition to the pain medication. ANTICOAGULATION (blood thinners): Continue your Aspirin, Lovenox or Coumadin as prescribed to help prevent a blood clot in the leg or in the lungs. As long as your incision remains dry and you tolerate the NSAIDs (Aleve, Advil, Motrin, ibuprofen, naprosyn), it is OK to use the NSAIDS while you are taking your anticoagulation medication. Should your incision start to drain, stop the NSAID and contact our office. Common symptoms of blood clot in the legs include: localized pain, swelling, calf tenderness, redness or discoloration of the skin. Blood clot in the lung symptoms include: shortness of breath, rapid pulse, sweating, and chest pain that worsens with deep breathing, coughing up blood, lightheadedness, feelings of anxiety. If you experience any of these symptoms notify your physician immediately, go to the emergency room, or if having trouble breathing, call 911. WOUND CARE: Leave the dressing on for 7 to 10days. You may change the dressing if it becomes saturated greater than 50%. Do not get the dressing wet at anytime. Wash your hands with antibacterial soap, rinse and dry prior to any wound care. If you have rob the visiting nurse or rehab facility can remove the stapes 10-14 days after surgery and place steri-strips across the wound. Leave the steri-strips in place until they fall off on their won. You may let water from the shower run on top of the steri-strips. If you do not have a visiting nurse or rehab facility, you will need to return to the office at 10-14 days for the rob to be removed. If you have itching or redness around the dressing call the office. FOLLOW-UP: Please follow up with your surgeon in the orthopedic clinic in 4 weeks from the day of surgery. If you have rob that need to be removed, you will need to come back to the office in 10-14 days from the day of surgery. Referrals: Davi Betts MD [Primary Care Provider] - Prescriptions: Cyclobenzaprine HCl 5 mg PO TID #21 tablet Lidocaine Patch [Lidoderm 5% patch] 1 each TP DAILY #60 adh..patch
[2018-01-11 06:46] VITALS: BP 125/79
[2018-01-11 07:08] LABS: Hematocrit 26.4 % (37.5-50.1); Hemoglobin 9.2 g/dL (12.9-16.9)
[2018-01-11] MEDS: Losartan/HCTZ 50-12.5 TABLET PO SCH (08:14)
[2018-01-11] MEDS: Gabapentin 300 MG CAPSULE PO SCH (08:15)
[2018-01-11] MEDS: Aspirin Enteric Coated 81 MG Tablet PO SCH (08:15)
[2018-01-11] MEDS: Celecoxib 200 MG CAPSULE PO SCH (08:15)
--- NOTE | 2018-01-11 12:22 | Event Note ---
Date of Encounter: 01/10/18 Time of Encounter: 13:00 PCR - POD#3 Bilateral TKR 01/07/18 Patient seen at bedside. INV - improved - Intermittent Tachycardia- improved. Encourage hydration and IS Labs reviewed. Monitor kidney function - H/H dropped - transfuse 2 units Pain control: adequate - D/C Toradol - resume Celebrex Participating in PT. All questions and concerns addressed. Educated on use of incentive spirometer. Encouraged ambulation and proper hydration. Patient educated on post-operative restrictions and post-operative care. Addressed: see above Discharge plan: Plan to DC home tomorrow; ECF or HH due to family's inability to care for him at home.
--- NOTE | 2018-01-11 12:24 | Event Note ---
Date of Encounter: 01/11/18 Time of Encounter: 12:22 PCR - POD#4 Bilateral TKR 01/07/18 Patient seen at bedside. INV - improved - Intermittent Tachycardia- resolved. Encourage hydration and IS Labs reviewed. Monitor kidney function - H/H stable - Pain control: adequate resume Celebrex Participating in PT. All questions and concerns addressed. Educated on use of incentive spirometer. Encouraged ambulation and proper hydration. Patient educated on post-operative restrictions and post-operative care. Addressed: see above Discharge plan: Plan to DC home today per patients request. Returned to baseline
[2018-01-11] MEDS: Ondansetron ODT 4 MG TAB.RAPDIS SL PRN (13:45)
== END 2018-01-11 14:00 | disposition home or self-care (01) | DRG 462 ==
LOC: SAMDAY 06:44 → 3NENU 12:13
PROVIDERS: ADMIT Orthopaedic Surgery; ATTEND Orthopaedic Surgery